=== PATIENT | male | born 1950 | race Hispanic/Latino ===

== ENCOUNTER 2020-02-18 11:08 | Emergency (ER) | payer MEDICARE ==
[~2020-02-18] VITALS: Ht 167.6 cm; Wt 68.0 kg
[2020-02-18] MEDS ORDERED: FAMOTIDINE 20 MG/2 ML VIAL IV STA (11:47)
[2020-02-18] MEDS ORDERED: PANTOPRAZOLE 40 MG 10ML VIAL IV STA (11:47)
[2020-02-18] MEDS ORDERED: DONNATAL/LIDOCAINE/MAALOX 30 ML SUSP PO ONE (12:00)
[2020-02-18] MEDS ORDERED: PANTOPRAZOLE 40 MG 10ML VIAL ONE (12:19)
[2020-02-18] MEDS ORDERED: BELLADONNA ALK/PHENOBARBITAL 5 ML UDC ONE (12:19)
[2020-02-18] MEDS ORDERED: LIDOCAINE VISC 2% SOLN 15 ML UDC ONE (12:19)
[2020-02-18] MEDS ORDERED: MAGNESIUM/ALUMINUM/SIMETHICONE 30 ML UDC ONE (12:19)
[2020-02-18] MEDS ORDERED: FAMOTIDINE 20 MG/2 ML VIAL IV ONE (12:19)
[2020-02-18] MEDS ORDERED: ASPIRIN 325 MG TAB PO NR (14:00)
[2020-02-18] MEDS ORDERED: ASPIRIN 81 MG CHEW TAB ONE (14:08)
[2020-02-18] MEDS ORDERED: NEXIUM40 MG PO (16:38)
[2020-02-18 16:54] VITALS: BP 148/72
== END 2020-02-18 16:55 | disposition home or self-care (01) ==
LOC: FSED 11:49
DX: R07.9 Chest pain, unspecified (principal); E11.65 Type 2 diabetes mellitus with hyperglycemia; K21.9 Gastro-esophageal reflux disease without esophagitis; F17.210 Nicotine dependence, cigarettes, uncomplicated; I10 Essential (primary) hypertension; E78.00 Pure hypercholesterolemia, unspecified
CPT/HCPCS: 71046; 80053; 82553; 84484; 85025; 93005; 99284; C9113

== ENCOUNTER 2020-02-28 13:05 | Emergency (ER) | payer OTHER ==
[~2020-02-28] VITALS: Ht 167.6 cm; Wt 68.5 kg
[~2020-02-28 13:05] MED LIST: NEXIUM40 MG PO
[2020-02-28] MEDS ORDERED: GLIMEPIRIDE4 MG (13:22)
[2020-02-28] MEDS ORDERED: LISINOPRIL2.5 MG PO (13:22)
[2020-02-28] MEDS ORDERED: METFORMIN HCL500 MG PO (13:22)
[2020-02-28] MEDS ORDERED: ATORVASTATIN CA20 MG PO (13:22)
[2020-02-28] MEDS ORDERED: FAMOTIDINE 20 MG/2 ML VIAL IV STA (13:37)
[2020-02-28] MEDS ORDERED: KETOROLAC TROMETHAMINE 30 MG/ML VIAL IV STA (13:40)
[2020-02-28] MEDS ORDERED: DONNATAL/LIDOCAINE/MAALOX 30 ML SUSP PO ONE (13:45)
[2020-02-28] MEDS ORDERED: MAGNESIUM/ALUMINUM/SIMETHICONE 30 ML UDC ONE (14:17)
[2020-02-28] MEDS ORDERED: BELLADONNA ALK/PHENOBARBITAL 5 ML UDC ONE (14:17)
[2020-02-28] MEDS ORDERED: KETOROLAC TROMETHAMINE 30 MG/ML VIAL ONE (14:17)
[2020-02-28] MEDS ORDERED: LIDOCAINE VISC 2% SOLN 15 ML UDC ONE (14:17)
[2020-02-28] MEDS ORDERED: FAMOTIDINE 20 MG/2 ML VIAL IV ONE (14:18)
[2020-02-28 16:41] VITALS: BP 147/72
== END 2020-02-28 15:54 | disposition home or self-care (01) ==
LOC: FSED 13:30
DX: R10.12 Left upper quadrant pain (principal); K80.20 Calculus of gallbladder without cholecystitis without obstruction; E11.65 Type 2 diabetes mellitus with hyperglycemia; E78.5 Hyperlipidemia, unspecified; F17.210 Nicotine dependence, cigarettes, uncomplicated
CPT/HCPCS: 74176; 80053; 81003; 82553; 84484; 85025; 96374; 96375; 99284; J1885; 93005

== ENCOUNTER 2021-08-06 09:44 | Emergency (ER) | payer OTHER ==
[~2021-08-06] VITALS: Ht 167.6 cm; Wt 68.0 kg
[~2021-08-06 09:44] MED LIST changes: +ATORVASTATIN CA20 MG PO; +GLIMEPIRIDE4 MG; +LISINOPRIL2.5 MG PO; +METFORMIN HCL500 MG PO
[2021-08-06] MEDS ORDERED: KETOROLAC TROMETHAMINE 30 MG/ML VIAL IM STA (10:32)
[2021-08-06] MEDS ORDERED: KETOROLAC TROMETHAMINE 30 MG/ML VIAL ONE (11:31)
[2021-08-06] MEDS ORDERED: CYCLOBENZAPRINE5 MG PO (12:26)
[2021-08-06] MEDS ORDERED: KETOROLAC TROME10 MG PO (12:28)
== END 2021-08-06 12:37 | disposition home or self-care (01) ==
LOC: FSED 09:45
DX: M54.41 Lumbago with sciatica, right side (principal); I10 Essential (primary) hypertension; E11.9 Type 2 diabetes mellitus without complications; E78.5 Hyperlipidemia, unspecified; F17.210 Nicotine dependence, cigarettes, uncomplicated
CPT/HCPCS: 72100; 74022; 99283; J1885